=== PATIENT | female | born 1990 | race Caucasian/White ===

== ENCOUNTER → 2022-08-04 09:59 | Outpatient (BNVA) | payer OTHER, SELFPAY | PROVIDERS: PCP Nurse Practitioner Family; Visit Provider Nurse Practitioner Family ==

== ENCOUNTER → 2022-09-08 13:29 | Outpatient (REF) | payer OTHER, SELFPAY | LOC: HO.SL 13:29 | PROVIDERS: PCP Nurse Practitioner Family; Visit Provider Nurse Practitioner Family | DX: G47.19 Other hypersomnia (principal); G47.9 Sleep disorder, unspecified; R06.83 Snoring | CPT/HCPCS: 95806 ==

== ENCOUNTER 2022-10-28 10:31 | Outpatient (REF) | payer OTHER, SELFPAY ==
--- NOTE | ~2022-10-28 | MR_ITS ---
EXAMINATION: MR BRAIN WITHOUT AND WITH CONTRAST CLINICAL INFORMATION: Anesthesia of skin. Migraine. COMPARISON: None available. TECHNIQUE: Multiplanar, multisequence MRI of the brain was obtained using a trigeminal protocol without and following the administration of 6.5 mL of Gadavist intravenous contrast. FINDINGS: No focal restricted diffusion is demonstrated to suggest acute or subacute cerebral ischemia. No evidence of acute or chronic hemorrhagic products on heme-sensitive imaging. Normal parenchymal signal characteristics. The ventricles are normal in morphology and size. No abnormal mass effect. No midline shift. Normal appearance of the pituitary gland. Normal positioning of the cerebellar tonsils. No mass of the cerebellopontine angles. Normal appearance of the cranial nerve V, VII, and VIII nerve roots. No edema or vascular loops near the nerve root entry sites. Normal appearance of the internal auditory canals without enhancing mass lesions. No abnormal enhancement along the course of the facial nerves bilaterally. Normal appearance of the labyrinthine structures without loss of T2 signal or abnormal enhancement. Normal arterial and venous vascular flow voids are present. No abnormal intracranial contrast enhancement. Normal, homogeneous marrow signal. Mild mucosal thickening of the paranasal sinuses. Moderate-nasal septal deviation. No signal abnormalities within the mastoids. MR/MR head/brain wo/w con IMPRESSION: 1. No acute intracranial abnormalities. No abnormal intracranial enhancement. 2. No MRI abnormalities to explain the patient's symptoms.
== END 2022-10-28 10:32 | disposition home or self-care (01) ==
LOC: HO.MRI 10:31
PROVIDERS: PCP Nurse Practitioner Family; Visit Provider Nurse Practitioner Family
DX: G43.909 Migraine, unspecified, not intractable, without status migrainosus (principal); R20.0 Anesthesia of skin
CPT/HCPCS: 70553; A9585

== ENCOUNTER 2023-01-26 13:00 | Outpatient (AMB) | payer OTHER, SELFPAY ==
--- NOTE | 2023-01-26 13:03 | MHC.OFFVIS ---
Intake Vital Signs 01/26/23 13:06 BP 98/82 Blood Pressure Location Rt brachial Position Sitting Pulse 86 Pulse Source Pulse Oximeter Pulse Oximetry (%) 98 Oxygen Delivery Method Room Air Intake Visit Reasons: 2m follow up migraines-LVM Intake Note: Patient presents for 2 month follow up. Patient states no issues or concerns. Allergies amoxicillin Allergy (Mild, Verified 01/26/23 13:04) Rash Seasonal Allergies Allergy (Mild, Verified 01/26/23 13:04) Unknown bupropion Adverse Reaction (Intermediate, Verified 01/26/23 13:04) Headache guanfacine Adverse Reaction (Mild, Verified 01/26/23 13:04) Fatigued Medication List - Last Reconciled 01/26/23 by PHONG Wan amitriptyline 100 mg PO BEDTIME buspirone 7.5 mg PO BID fluocinonide 0.05% 1 appl topical DAILY PRN fremanezumab-vfrm (Ajovy) 225 mg (1.5 mL) subcut ONCE 30 days L norgest/e.estradiol-e.estrad 0.15 mg-30 mcg (84)/10 mcg (7) 1 tab PO DAILY melatonin 10 mg PO BEDTIME PRN multivitamin 1 tab PO DAILY polyethylene glycol 3350 (Miralax) 17 grams PO DAILY propranolol ER 60 mg PO BEDTIME 30 days riboflavin (vitamin B2) 400 mg PO DAILY 30 days rizatriptan 5 - 10 mg (0.5 - 1 x 10 mg) PO Q2H PRN 21 days testosterone cypionate mg IM trazodone 100 mg PO BEDTIME PRN HPI HPI Comments History of Present Illness Details 32-yr-old presents for f/u visit. Pt denies any significant interval medical changes. Pt had an eye exam, which showed changes in vision.. Since, the last visit, pt started on Ajovy with positive effect. Has had a decrease in migraine frequency. Has not had any migraine visual aura s/s in a long time. Now only needing to take their as needed treatment once a week or once every other week. Does still have some sleep difficulties. PFSH Family History Father Migraines Depression Mother Depression Anxiety CFS (chronic fatigue syndrome) Social History Alcohol intake: current Alcohol intake frequency: holidays/special occasions only Patient Tobacco Use Status: Never used Tobacco Review of Systems Const All systems reviewed & are unremarkable except as noted in HPI and below Physical Exam Vital Signs: Last Vital Signs Pulse 86 01/26/23 13:06 BP 98/82 01/26/23 13:06 Pulse Ox 98 01/26/23 13:06 Oxygen Delivery Method Room Air 01/26/23 13:06 Const General: cooperative and no acute distress Orientation/consciousness: patient oriented x3 HEENT Head: Yes normocephalic Resp Effort & Inspection: normal respiratory effort and able to speak in complete sentences Neuro General: patient oriented x3, gait normal and CN's II-XI intact bilaterally Cognition (Neuro): normal cognition Motor exam (neuro): 5/5 motor strength present throughout Psych Appearance: grossly normal Mental Status: mental status grossly normal Speech and movement: Normal speech and movement present Affect: normal affect Attitude: cooperative Thought process: Normal thought process present Thought content: Normal thought content present Insight: Good insight present (Psych) Judgement: Good judgement present (Psych) Assessment & Plan Assessment & Plan (1) Migraine with aura: Comment: probable, either right or left sided facial numbness w/o weakness- occurring during headache phase of migraine Code(s): G43.109 - Migraine with aura, not intractable, without status migrainosus (2) Sleep difficulties: Code(s): G47.9 - Sleep disorder, unspecified Plan Reviewed HST- NL Reviewed brain MRI- normwi ? For overall headache management: Continue optimizing good self-care, including but not limited to maintaining a healthy diet, adequate fluid intake, adequate sleep, and engaging in regular physical activity. Track headaches. Pt may benefit from reading/listening to Say [place] to Insomnia by Dr Vikram Loredo or similar CBTi resources. ? For acute headache treatment: Continue Rizatriptan 10mg w/ Aleve prn. Previous acute migraine medication trials: Sumatriptan- ineffective Acute migraine medication contraindications: None at this time. ? For headache prevention medication: Continue Riboflavin 400mg qam Continue Amitriptyline 100 mg qhs. Continue Propranolol 60mg ER qhs. Continue Ajovy 225mg sc q month- as pt has had good clinical effect with > 50% reduction in migarine attacks from use. Previous migraine prevention medication trials: Magnesium- ineffective Migraine prevention medication contraindications: None at this time ? f/u in 6 months or sooner prn. Coding Level of Care Code Est Pt Level 4 (80674) Diagnoses Migraine with aura G43.109 Sleep difficulties G47.9
[2023-01-26 13:06] VITALS: BP 98/82; PULSE 86; O2SAT 98
== END 2023-01-26 13:42 | disposition home or self-care (01) ==
PROVIDERS: Visit Provider Nurse Practitioner Family
DX: G43.109 Migraine with aura, not intractable, without status migrainosus (principal); G47.9 Sleep disorder, unspecified
CPT/HCPCS: 99214

== ENCOUNTER → 2023-01-26 13:00 | Outpatient (BNVA) | payer OTHER, SELFPAY | PROVIDERS: Visit Provider Nurse Practitioner Family ==

== ENCOUNTER → 2023-07-27 14:17 | Outpatient (BNVA) | payer OTHER, SELFPAY | PROVIDERS: PCP Nurse Practitioner Family; Visit Provider Nurse Practitioner Family ==

== ENCOUNTER 2024-02-01 14:35 | Outpatient (AMB) | payer OTHER, SELFPAY ==
--- NOTE | 2024-02-01 14:37 | MHC.OFFVIS ---
Vital Signs 02/01/24 14:39 Height 5 ft 3 in BP 100/78 Blood Pressure Location Rt brachial Position Sitting Intake Visit Reasons: Follow up Intake Note: Patient presents for follow up. no issues or concerns. Allergies amoxicillin Allergy (Mild, Verified 02/01/24 14:40) Rash Seasonal Allergies Allergy (Mild, Verified 02/01/24 14:40) Unknown bupropion Adverse Reaction (Intermediate, Verified 02/01/24 14:40) Headache guanfacine Adverse Reaction (Mild, Verified 02/01/24 14:40) Fatigued Medication List - Last Reconciled 02/01/24 by PHONG Wan amitriptyline 100 mg PO BEDTIME 30 days buspirone 7.5 mg PO BID fluocinonide 0.05% 1 appl topical DAILY PRN fremanezumab-vfrm (Ajovy) 225 mg (1.5 mL) subcut ONCE 30 days L norgest/e.estradiol-e.estrad 0.15 mg-30 mcg (84)/10 mcg (7) 1 tab PO DAILY melatonin 10 mg PO BEDTIME PRN multivitamin 1 tab PO DAILY polyethylene glycol 3350 (Miralax) 17 grams PO DAILY propranolol 20 mg PO BID 30 days propranolol ER 60 mg PO BEDTIME 30 days riboflavin (vitamin B2) 400 mg PO DAILY 30 days rizatriptan 5 - 10 mg (0.5 - 1 x 10 mg) PO Q2H PRN 21 days testosterone cypionate mg IM trazodone 100 mg PO BEDTIME PRN HPI Comments Details: 33-yr-old presents for f/u visit of migraine. Pt denies any significant interval medical changes. Pt reports migraines are better controlled. They still have photophobia. However recently misplaced sunglasses, and has been able to do daily activities- though this is not very comfortable. They may need to use the rizatriptan approx 2-3 x's per month, which is effective. Since, the last visit, pt started on Ajovy with positive effect. Has had a decrease in migraine frequency. Has not had any migraine visual aura s/s in a long time. Now only needing to take their as needed treatment once a week or once every other week. Does still have some sleep difficulties. PFSH Family History Father Migraines Depression Mother Depression Anxiety CFS (chronic fatigue syndrome) Social History Alcohol intake: current Alcohol intake frequency: holidays/special occasions only Patient Tobacco Use Status: Never used Tobacco Physical Exam Vital Signs: Last Vital Signs BP 100/78 02/01/24 14:39 Const General: cooperative and no acute distress Orientation/consciousness: patient oriented x3 HEENT Head: Yes normocephalic Resp Effort & Inspection: normal respiratory effort and able to speak in complete sentences Neuro General: patient oriented x3, gait normal and CN's II-XI intact bilaterally Cognition (Neuro): normal cognition Motor exam (neuro): 5/5 motor strength present throughout Psych Appearance: grossly normal Mental Status: mental status grossly normal Speech and movement: Normal speech and movement present Affect: normal affect Attitude: cooperative Thought process: Normal thought process present Assessment & Plan Assessment & Plan (1) Migraine with aura: Comment: either right or left sided facial numbness w/o weakness- occurring during headache phase of migraine Code(s): G43.109 - Migraine with aura, not intractable, without status migrainosus Category: Medical (2) Sleep difficulties: Code(s): G47.9 - Sleep disorder, unspecified Category: Medical Plan ? For overall headache management: Continue optimizing good self-care, including but not limited to maintaining a healthy diet, adequate fluid intake, adequate sleep, and engaging in regular physical activity. Track headaches. Monitor sleep. ? For acute headache treatment: Continue Rizatriptan 10mg w/ Aleve prn. Previous acute migraine medication trials: Sumatriptan- ineffective Acute migraine medication contraindications: None at this time. ? For headache prevention medication: Continue Riboflavin 400mg qam Continue Amitriptyline 100 mg qhs- may help w/ sleep as well. Continue Propranolol 60mg ER qhs. Continue Ajovy 225mg sc q month- as pt has had good clinical effect with > 50% reduction in migraine attacks from use. Previous migraine prevention medication trials: Magnesium- ineffective Migraine prevention medication contraindications: None at this time ? f/u in 12 months or sooner prn. Medications: Refilled amitriptyline 100 mg PO BEDTIME 30 tabs 6RF 30 days propranolol ER 60 mg PO BEDTIME 30 caps 6RF 30 days riboflavin (vitamin B2) 400 mg PO DAILY 30 tabs 6RF 30 days Coding Level of Care Code Est Pt Level 4 (07903) Diagnoses Migraine with aura G43.109 Sleep difficulties G47.9
[2024-02-01 14:39] VITALS: BP 100/78
== END 2024-02-01 15:23 | disposition home or self-care (01) ==
LOC: HO.HSMS 14:36
PROVIDERS: PCP Nurse Practitioner Family; Visit Provider Nurse Practitioner Family
DX: G43.109 Migraine with aura, not intractable, without status migrainosus (principal); G47.9 Sleep disorder, unspecified
CPT/HCPCS: 99214

== ENCOUNTER → 2024-02-01 14:35 | Outpatient (BNVA) | payer OTHER, SELFPAY | PROVIDERS: PCP Nurse Practitioner Family; Visit Provider Nurse Practitioner Family ==

== ENCOUNTER 2025-01-23 14:02 | Outpatient (AMB) | payer OTHER, SELFPAY ==
[2025-01-23 14:09] VITALS: BP 100/60; PULSE 73; O2SAT 99
--- NOTE | 2025-01-23 14:09 | MHC.OFFVIS ---
Vital Signs 01/23/25 14:09 Height 5 ft 3 in BP 100/60 Blood Pressure Location Rt brachial Position Sitting Pulse 73 Pulse Source Pulse Oximeter Pulse Oximetry (%) 99 Oxygen Delivery Method Room Air Intake Visit Reasons: follow up Intake Note: Patient presents for follow up. no issues or concerns. Anesthesiologist Attending Required: No Accompanied by: Self / Same As Patient Allergies amoxicillin Allergy (Mild, Verified 01/23/25 14:12) Rash Seasonal Allergies Allergy (Mild, Verified 01/23/25 14:12) Unknown bupropion Adverse Reaction (Intermediate, Verified 01/23/25 14:12) Headache guanfacine Adverse Reaction (Mild, Verified 01/23/25 14:12) Fatigued Medication List - Last Reconciled 01/23/25 by PHONG Wan amitriptyline 100 mg PO BEDTIME 30 days buspirone 7.5 mg PO BID fluocinonide 0.05% 1 appl topical DAILY PRN fremanezumab-vfrm (Ajovy) 225 mg (1.5 mL) subcut ONCE 30 days L norgest/e.estradiol-e.estrad 0.15 mg-30 mcg (84)/10 mcg (7) 1 tab PO DAILY melatonin 10 mg PO BEDTIME PRN multivitamin 1 tab PO DAILY polyethylene glycol 3350 (Miralax) 17 grams PO DAILY propranolol 20 mg PO BID 30 days riboflavin (vitamin B2) 400 mg PO DAILY 30 days rizatriptan 5 - 10 mg (0.5 - 1 x 10 mg) PO Q2H PRN 21 days testosterone cypionate mg IM trazodone 100 mg PO BEDTIME PRN HPI Comments Details: 34-yr-old presents for f/u visit of migraine with visual aura Pt denies any significant interval medical changes. Pt reports migraines are well controlled. However, may have breakthrough migraine attack with delays in receiving their Ajovy. No recent to be a migraine attacks. May wake up couple of days a week a mild headache responsive to OTC analgesics. Using rizatriptan as needed, we will good effect. They report very having less bothersome photophobia. Is overall sleeping better PFSH Family History Father Migraines Depression Mother Depression Anxiety CFS (chronic fatigue syndrome) Social History (Reviewed 01/23/25 @ 14:09 by ZAKI Coleman Alcohol intake: current Alcohol intake frequency: holidays/special occasions only Patient Tobacco Use Status: Never used Tobacco Physical Exam Vital Signs: Last Vital Signs Pulse 73 01/23/25 14:09 BP 100/60 01/23/25 14:09 Pulse Ox 99 01/23/25 14:09 Oxygen Delivery Method Room Air 01/23/25 14:09 Const General: cooperative and no acute distress Orientation/consciousness: patient oriented x3 HEENT Head: Yes normocephalic Resp Effort & Inspection: normal respiratory effort and able to speak in complete sentences Neuro General: patient oriented x3, gait normal and CN's II-XI intact bilaterally Cognition (Neuro): normal cognition Motor exam (neuro): 5/5 motor strength present throughout Psych Appearance: grossly normal Mental Status: mental status grossly normal Speech and movement: Normal speech and movement present Affect: normal affect Attitude: cooperative Thought process: Normal thought process present Assessment & Plan Assessment & Plan (1) Migraine with aura: Comment: either right or left sided facial numbness w/o weakness- occurring during headache phase of migraine Code(s): G43.109 - Migraine with aura, not intractable, without status migrainosus Category: Medical Qualifiers: Status migrainosus presence: without status migrainosus Intractability: not intractable Qualified Code(s): G43.109 - Migraine with aura, not intractable, without status migrainosus (2) Sleep difficulties: Code(s): G47.9 - Sleep disorder, unspecified Category: Medical Plan ? For overall headache management: Continue optimizing good self-care, including but not limited to maintaining a healthy diet, adequate fluid intake, adequate sleep, and engaging in regular physical activity. Track headaches. Monitor sleep. ? For acute headache treatment: Continue Rizatriptan 10mg w/ Aleve prn. Previous acute migraine medication trials: Sumatriptan- ineffective Acute migraine medication contraindications: None at this time. ? For headache prevention medication: Continue Riboflavin 400mg qam Continue Amitriptyline 100 mg qhs- may help w/ sleep as well. Continue Propranolol 20 mg twice a day Continue Ajovy 225mg sc q month- as pt has had good clinical effect with > 50% reduction in migraine attacks from use. We will follow-up on recent prior authorization renewal request, which possibly may be delayed as the patient has had and official change to their 1st name Previous migraine prevention medication trials: Magnesium- ineffective Migraine prevention medication contraindications: None at this time ? f/u in 12 months or sooner prn. Coding Level of Care Code Est Pt Level 4 (03582) Diagnoses Migraine with aura and without status migrainosus, not intractable G43.109 Status migrainosus presence: without status migrainosus Intractability: not intractable Sleep difficulties G47.9
--- OUTSIDE RECORDS SUMMARY | 2025-01-23 20:14 | XMS_ITS | Encounter Summary ---
Author Organization Formerly [facility] Address [address] [place] [id number] Phone Care Team Providers Care Commercial Loan Specialist Name Role Phone Deb Knox [employer] Primary Care Provider Encounter Details Date Type Department Care Team (Late st Contact Info) Description 06/30/2021 Procedure Pass [facility], Ct Scan - [facility] [address] [place] [address] Social History Tobacco Use Types Packs/Day Years Used Date Smoking Tobacco: Never Smokeless Tobacco: Never Alcohol Use Standard Drinks/Week Comments Yes 0 (1 standard drink = 0.6 oz pur e alcohol) few times a month Comments No Sex and Gender Information Value Date Recorded Sex Assigned at Female 06/30/2021 9:21 AM EDT Legal Sex Female 10:26 PM EDT Gender Identity Non-binary 06/30/2021 9:21 AM EDT Sexual Orientation Choose not to disclose 2021 8:57 PM EDT documented as of this encounter Functional Status * Calculated C-SSRS Risk Score (Lifetime/Recent) Answer Date of Assessment Author No Risk Indicated 06/30/2021 9:21 AM EDT Shira Mackey RN * [place] Suicide Severity Rating Scale (Screener/Recent Self-Report) Question Answer Date of Assessment Author 1. Wish to be (Past 1 Month) No 022 9:21 AM EDT Shira Mackey RN 2. Non-Specific Active Suici marcy Thoughts (Past 1 Month) No 06/30/2021 9:21 AM EDT Shira Mackey, ROEL 6. Suicidal Behavior (Lifetime) No 2 9:21 AM EDT Shira Mackey RN documented as of this encounter Plan of Treatment Not on file documented as of this encounter Visit Diagnoses Not on filedocumented in this encounter Care Teams Commercial Loan Specialist Relationship Specialty Start Date End Date Deb Knox NP [address] [place] [phone] [email or web address] PCP - General Family Medicine 06/30/21 documented as of this encounter Additional Source Comments The information contained in this document represents components of the legal health record. It is not the complete legal health record.[facility]
--- OUTSIDE RECORDS SUMMARY | 2025-01-23 20:14 | XMS_ITS | Clinical Summary ---
Author Organization [facility] Address [address] [place] [phone] Phone Care Team Providers Care Automobile Appraiser Name Role Phone Deb Knox TELECOMMUNICATION LINES REPAIRER Primary Care Provider Allergies Active Allergy Reactions Criticality Noted Date Comments Amoxicillin Rash Low 11/02/2017 Medications fluocinolone (DERMA-SMOOTHE/FS SCALP) 0.01 % Oil scalp oil Apply topically nightly. Active mv,calcium,min/iro n/folic/vitK (MULTI FOR HER ORAL) Take by mouth. Active neomycin-polymyxin B-hydrocortisone (CORTOMYCIN) 3.5-10,000-1 mg/mL-unit/mL-% otic suspension 3 drops by Each Ear route 4 (four) times a day. 10 mL 8 Active norgestimate-ethin yl estradiol (ORTHO-CYCLEN) 0.25-0.035 mg per tabletIndications: Dysmenorrhea treated with oral contraceptive Take 1 tablet by mouth daily. Skip placebo pills 4 packet 8 Active butalbital-acetami nophen-caffeine (FIORICET, ESGIC) 50-325-40 mg per tablet Take 1 tablet by mouth every 4 (four) hours as needed for pain (specific location in comments). 12 tablet 2 Active Active Problems Problem Noted Date Diagnosed Date Dysmenorrhea treated with oral contraceptive 04/2017 Assessment & Plan (11/02/2017 11:12 AM EDT): Discussed options for management - Bethanie is already using scheduled NSAIDs without adequate relief. We discussed Lysteda to decrease menstrual blood flow. We also discussed continuously cycled OCPs to decrease frequency of menses and alleviate associated menstrual complaints. She would like to try this - discussed how to start pill and recommend withdraw bleed after 3 packs. Family History Medical History Relation Comments No Known Problems Father No Known Problems Maternal Grandfather No Known Problems Maternal Grandmother Insomnia Mother No Known Problems Paternal Grandfather No Known Problems Paternal Grandmother Relation Status Comments Father Alive Maternal Grandfather Alive Maternal Grandmother Alive Mother Alive Paternal Grandfather Paternal Grandmother Social History Tobacco Use Types Packs/Day Years Used Date Smoking Tobacco: Never Smokeless Tobacco: Never Alcohol Use Standard Drinks/Week Comments Yes 0 (1 standard drink = 0.6 oz pur e alcohol) few times a month Education Answer Date Recorded Are you interested in more education? Not on james e 07/30/2022 Are you concerned about learning? Not on file 07/30/2022 No 07/30/2022 No 07/30/2022 Digital Access Answer Date Recorded No 08/28/2022 No 08/28/2022 No 08/28/2022 Reliable internet access at home? Not on file 08/28/2022 Device with a working camera? Not on file Comments No Sex and Gender Information Value Date Recorded Sex Assigned at Female 06/30/2021 9:21 AM EDT Legal Sex Female 10:26 PM EDT Gender Identity Non-binary 06/30/2021 9:21 AM EDT Sexual Orientation Choose not to disclose 2021 8:57 PM EDT Last Filed Vital Signs Vital Sign Reading Time Taken Comments Blood Pressure 134/85 07/13/2021 8:55 PM EDT Pulse 100 07/13/2021 8:55 PM EDT Temperature 36.7 C (98.1 F) 07/13/2021 8:55 PM EDT Respiratory Rate 16 07/13/2021 8:55 PM EDT Oxygen Saturation 100% 07/13/2021 8:55 PM EDT Inhaled Oxygen Concentration - - Weight 56.7 kg (125 lb) 07/13/2021 8:55 PM EDT Height 160 cm (5' 3 ) 07/13/2021 8:55 PM EDT Body Mass Index 22.14 07/13/2021 8:55 PM EDT Plan of Treatment Health Maintenance Due Date Last Done Comments Adult Td,Tdap Booster 1990 DEPRESSION SCREENING 2001 HEPATITIS C SCREENING 09/30/2007 HIV ONE-TIME SCREENING (18-6 5 YEARS) 09/30/2007 PAP SMEAR 01/01/2024 12/31/2020, 11/02/2017, 11/02/2017 INFLUENZA VACCINE (#1) 2024 COVID-19 VACCINE (2 - 2024-2 6 season) 2024 02/11/2021 SMOKING STATUS SCREENING (On ce After 26 Yrs) Completed 11/06/2017 HEPATITIS A VACCINES Aged Out No long er eligible based on patient's age to complete this topic HIB VACCINES Aged Out No longer eligi ble based on patient's age to complete this topic MENINGOCOCCAL VACCINES (ACWY) Aged Out No longer eligible based on patient's age to complete this topic MENINGOCOCCAL VACCINES (B) Aged Out N o longer eligible based on patient's age to complete this topic PNEUMOCOCCAL VACCINES (0-49 years) Aged Out No longer eligible b ased on patient's age to complete this topic Medical Devices Not on file Procedures Procedure Name Priority Date/Time Associated Diagnosis Comments PAP TEST Routine 12/31/2020 12:00 AM EDT from Last 3 Months or Most Recently Relevant to Health Maintenance Results * Pap Smear (12/31/2020 12:00 AM EDT) 12/31/2020 01/01/2021 9:1 1 AM EDT Narrative SEE NARRATIVE - 01/09/2021 2:50 PM EDT [address] [address] [place] [employer] Laborer: Daysi Campos MD CROWN POUNCER Cytology Report FINAL DIAGNOSIS A. PAP SMEAR (SUREPATH) CE: SPECIMEN ADEQUACY: Satisfactory for evaluation; transformation zone absent/insufficient. Evaluation limited by thickness of cellular specimen. INTERPRETATION: NEGATIVE FOR INTRAEPITHELIAL LESION OR MALIGNANCY. Reactive changes. Electronically Signed Out By: MD Daniel Barker CT(ASCP) By his/her signature above, the pathologist listed as making the Final Diagnosis certifies that he/she has personally reviewed this case and confirmed or corrected the diagnosis. The Pap test is a screening test primarily for squamous cancers and precursors and has associated false-negative and false-positive results. New technologies such as liquid-based preparations may decrease but will not eliminate all false-negative results. Regular sampling and follow-up of unexplained clinical signs and symptoms are recommended to minimize false negative results. PROCEDURES/ADDENDA HPV Testing (Requested) Ordered Date: 01/01/2021 A. PAP SMEAR (SUREPATH) CE: Human Papilloma Virus Test Negative for high-risk human papillomavirus types 16, 18, 45 and the Other high risk probe set (Includes 31, 33, 35, 39, 51, 52, 56, 58, 59, 66, 68) by [employer] HR-HPV analysis. Clinical correlation is advised. This HPV test was performed at [facility], [address] [place] [address]. This test has been FDA approved for SurePath cervical cytology specimens. The accuracy and precision of this test for all other specimen sources has been verified in the Cytopathology Laboratory of the [facility] and has not been cleared or approved by the U.S. Food and Drug Administration. Clinical correlation is advised. CLINICAL HISTORY Date of Last Menstrual Period: Not Provided Menstrual History: Unknown Other Clinical Conditions: Screening Pap SPECIMEN SOURCE A: PAP SMEAR (SUREPATH) CE Patient Name: BETHANIE JAIMES : 1990 (Age: 30) Sex: F Institution: [facility] Location: [facility] Date of Collection: 12/31/2020 Date of Reported: 01/09/2021 14:50 Results to: Samantha Padron NP us aSmantha Padron TECHNICAL REP CYTOLOGY ORDERABLES Fin al Result SEE NARRATIVE from Last 3 Months or Most Recently Relevant to Health Maintenance Insurance [employer] [employer] NON [employer] PCP [employer] Member Subscriber Plan / Payer (Ef fective 2017-Present) Name:Bethanie Avila Relation to Subscriber:Self Name:Bethanie Avila Payer ID:[id number] Type:HMO Address: [address] QUALITY LIMITED [facility] HMO [facility] NON NSPG PCP [employer] Member Subscriber Plan / Payer (Ef fective 2017-Present) Name:Bethanie Avila Relation to Subscriber:Self Name:Bethanie Avila Payer ID:[id number] Type:HMO Address: [address] [employer] LIMITED [facility] HMO [facility] NON NSPG PCP [employer] [place] [address] [place] [address] QUALITY LIMITED [facility] HMO [facility] NON NSPG PCP S[employer] [address] QUALITY LIMITED [facility] NON NSPG PCP S[employer] [address] QUAL[facility] NON NSPG PCP S[employer] [address] QUALITY LIMITED [facility] HMO [employer] [employer] NON NSPG PCP S[employer] [address] QUALITY LIMITED [facility] NON NSPG PCP [facility] QUAL[facility] QUALITY LIMITED [facility] H[facility] Care Teams Automobile Appraiser Relationship Specialty Start Date End Date Deb Knox NP [address] [place] [phone] [email or web address] PCP - General Family Medicine 06/30/21 Additional Source Comments The information contained in this document represents components of the legal health record. It is not the complete legal health record.[facility]
--- OUTSIDE RECORDS SUMMARY | 2025-01-23 20:14 | XMS_ITS | Encounter Summary ---
Author Organization [facility] Address [address] [place] [phone] Phone Care Team Providers Care Repair Service Clerk Name Role Phone Deb Knox GRIDDLE ATTENDANT Primary Care Provider Encounter Details Date Type Department Care Team (Latest Contact Info) Description 06/30/2022 Transcribe Orders [facility] [address] [address] Marcy Brady NP [address] [place] [address] Constipation, unspecified constipation type (Primary Dx) Social History Tobacco Use Types Packs/Day Years [...] PM EDT documented as of this encounter Plan of Treatment Not on file documented as of this encounter Results * TSH (06/30/2022 2:18 PM EDT) TSH 0.73 0.27 - 4.20 uIU/mL [facility] Blood 06/30/2022 2:18 PM EDT 06/30/2022 2:34 PM EDT Marcy Brady GRIDDLE ATTENDANT LAB BLOOD ORDERABLES Geeta l Result [address] [address] * C-Reactive Protein (06/30/2022 2:18 PM EDT) Pathologist [facility] C REACTIVE PROTEIN <3.0 0.0 - 4.0 mg/L [facility] Blood 06/30/2022 2:18 PM EDT 06/30/2022 2:34 PM EDT Marcy Brady GRIDDLE ATTENDANT LAB BLOOD ORDERABLES Geeta l Result Performing Organization Address [facility] Co de Phone Number [address] [phone] * (ABNORMAL) Comprehensive metabolic panel (06/30/2022 2:18 PM EDT) Pathologist [facility] SODIUM 138 133 - 146 mmol/L [facility] POTASSIUM 3.8 3.3 - 5.1 mmol/L [facility] CHLORIDE 101 96 - 108 mmol/L [facility] CO2 26 21 - 35 mmol/L [facility] BUN 10 6 - 19 mg/dL [facility] CREATININE 0.70 0.5 - 1.5 mg/dL [facility] GLUCOSE 101(H) 70 - 99 mg/dL [facility] ALBUMIN 4.4 3.9 - 4.8 g/dL [facility] TOTAL PROTEIN 7.6 6.5 - 8.0 g/dL [facility] CALCIUM 9.5 8.4 - 10.3 mg/dL [facility] ALKALINE PHOSPHATASE 42 39 - 117 U/L [facility] TOTAL BILIRUBIN 0.2 0.0 - 1.2 mg/dL [facility] AST 31 0 - 37 U/L [facility] ALT 15 0 - 40 U/L [facility] GLOBULIN 3.2 1 - 4.8 g/dL [facility] EGFR 118 >59 mL/min/1.7 3m2 [facility] Comment:Estimated glomerular filtration rate calculated using the CKD-EPI refit equation. ANION GAP 15 10 - 20 mmol/L [facility] Blood 06/30/2022 2:18 PM EDT 06/30/2022 2:34 PM EDT Marcy Brady GRIDDLE ATTENDANT LAB BLOOD ORDERABLES Geeta l Result [address] [address] * CBC (06/30/2022 2:18 PM EDT) WBC 7.43 4.00 - 11.00 K/uL [facility] RBC 4.91 3.72 - 5.30 M/uL [facility] HGB 15.0 10.6 - 15.5 g/dL [facility] HCT 43.2 32.0 - 45.0 % [facility] PLT 267 140 - 430 K/uL [facility] MCV 88.0 78.0 - 97.0 fL [facility] MCH 30.5 25.0 - 33.0 pg [facility] MCHC 34.7 32.0 - 36.0 g/dL [facility] RDW 13.0 11.0 - 16.0 % [facility] MPV 11.1 8.4 - 12.8 fl [facility] Blood 06/30/2022 2:18 PM EDT 06/30/2022 2:34 PM EDT Marcy Brady GRIDDLE ATTENDANT LAB BLOOD ORDERABLES Geeta l Result [address] [address] * Immunoglobulin A (06/30/2022 2:18 PM EDT) IgA 198 70 - 400 mg/dL [facility] Blood 06/30/2022 2:18 PM EDT 06/30/2022 2:34 PM EDT Marcy Brady GRIDDLE ATTENDANT LAB BLOOD ORDERABLES Geeta l Result [facility] [address] [place] [address] * Tissue transglutaminase IgA (06/30/2022 2:18 PM EDT) TTG IGA ANTIBODY <1.2 <4.0 (Negative) U/mL [facility] Blood 06/30/2022 2:18 PM EDT 06/30/2022 2:34 PM EDT Marcy Brady GRIDDLE ATTENDANT LAB BLOOD ORDERABLES Geeta l Result Performing Organization Address City/[facility]/ZIP Co de Phone Number [facility] [address] [place] [address] documented in this encounter Visit Diagnoses Diagnosis Constipation, unspecified constipation type- Primary documented in this encounter Care Teams Repair Service Clerk Relationship Specialty Start Date End Date Deb Knox NP [address] [place] [phone] [email or web address] PCP - General Family Medicine 06/30/21 documented as of this encounter Additional Source Comments The information contained in this document represents components of the legal health record. It is not the complete legal health record.[facility]
== END 2025-01-23 14:51 | disposition home or self-care (01) ==
LOC: HO.HSMS 14:02
PROVIDERS: PCP Nurse Practitioner Family; Visit Provider Nurse Practitioner Family
DX: G43.109 Migraine with aura, not intractable, without status migrainosus (principal); G47.9 Sleep disorder, unspecified
CPT/HCPCS: 99214